=== PATIENT | female | born 1965 | race Asian ===

== ENCOUNTER 2019-04-21 12:23 | Inpatient (IN) | payer OTHER ==
[~2019-04-21] VITALS: Ht 165.1 cm; Wt 72.1 kg
[2019-04-21 12:39] VITALS: BP_SYST 142
[2019-04-21] MEDS ORDERED: DIPHENHYDRAMINE INJ 50 MG/ML VIAL IVP ONE (12:45)
[2019-04-21] MEDS ORDERED: MORPHINE 4 MG/ML INJ. SYRINGE IVP ONE (12:45)
[2019-04-21 13:08] LABS: BASOPHILS % (AUTO) 0.8 % (0.0-2.0); EOSINOPHILS # (AUTO) 0.1 K/uL (0.0-0.4); EOSINOPHILS % (AUTO) 1.2 % (0.0-4.0); HEMATOCRIT 41.1 % (36-48); LYMPHOCYTES % (AUTO) 39.2 % (20.5-51.5); MEAN CORPUSCULAR HEMOGLOBIN 19 pg (27-31); MEAN CORPUSCULAR HGB CONC 32 % (32-36); MEAN CORPUSCULAR VOLUME 61 fL (79.0-98.0); MONOCYTES # (AUTO) 0.3 K/uL (0.0-1.0); MONOCYTES % (AUTO) 5.4 % (1.7-9.3); NEUTROPHILS # (AUTO) 2.7 K/uL (1.8-7.7); NEUTROPHILS % (AUTO) 53.4 % (40.0-70.0); PLATELET COUNT (AUTO) 190 K/uL (130-430); RED BLOOD CELL COUNT(AUTO) 6.69 MIL/uL (4.2-6.2); WHITE BLOOD COUNT (AUTO) 5.1 K/uL (4.8-10.8)
[2019-04-21 13:18] LABS: ANION GAP 8 (5-15); CALCIUM 9.3 mg/dL (8.4-11.0); CHLORIDE 103 mmol/L (98-107); CREATININE 0.83 mg/dL (0.55-1.30); GLUCOSE 112 mg/dL (70-99); POTASSIUM 3.2 mmol/L (3.5-5.1); SODIUM SERUM 137 mmol/L (136-145); UREA NITROGEN, BLOOD 12 mg/dL (8-21)
[2019-04-21 13:19] LABS: GFR AFRICAN AMERICAN 92 mL/min (>90); INR 0.9 (0.8-1.2); PROTHROMBIN TIME 9.6 SECS (9.5-12.5)
[2019-04-21] MEDS ORDERED: ASPIRIN 81 MG TAB.CHEW PO ONE (13:30)
[2019-04-21] MEDS ORDERED: METOPROLOL TARTRATE 5 MG/5 ML VIAL IVP ONE (13:30)
[2019-04-21 13:35] LABS: ALANINE AMINOTRANSFERASE 26 U/L (12-78); ALBUMIN 3.9 g/dL (3.4-4.8); ALCOHOL, BLOOD < 3 mg/dL (<10); ASPARTATE AMINOTRANSFERASE 54 U/L (10-37); FREE T4 (FREE THYROXINE) 0.9 ng/dL (0.6-1.6); TOTAL BILIRUBIN 0.8 mg/dL (0.0-1.0)
[2019-04-21] MEDS ORDERED: VITA1CAP PO (14:14)
[2019-04-21] MEDS ORDERED: OMEP40CA33 PO (14:14)
[2019-04-21] MEDS ORDERED: VITD2000 PO (14:14)
[2019-04-21] MEDS ORDERED: GLUC-103 PO (14:14)
[2019-04-21] MEDS ORDERED: cloNIDine HCL 0.1 MG TABLET PO ONE (14:30)
[2019-04-21 15:22] LABS: BILIRUBIN,URINE NEGATIVE (NEGATIVE); CLARITY/URINE CLEAR (CLEAR); COLOR,URINE YELLOW (YELLOW); GLUCOSE,URINE NEGATIVE (NEGATIVE); KETONES,URINE NEGATIVE (NEGATIVE); NITRITE, URINE NEGATIVE (NEGATIVE); PROTEIN URINE TRACE (NEGATIVE); UROBILINOGEN,URINE 0.2 (0.2-1.0)
[2019-04-21 15:29] LABS: BLOOD, URINE TRACE (NEGATIVE); LEUKOCYTE ESTERASE ,URINE 1+ (NEGATIVE)
[2019-04-21 15:30] LABS: BACTERIA,URINE FEW /HPF (None Seen); MUCUS,URINE None Seen /LPF (None Seen); RBC,URINE 0-3 /HPF (0-3)
[2019-04-21 15:36] LABS: BARBITURATE, URINE NEGATIVE (NEG <=200)
[2019-04-21 15:37] LABS: BENZODIAZEPINE, URINE NEGATIVE (NEG <=150); CANNABINOID, URINE NEGATIVE (NEG <=50); COCAINE, URINE NEGATIVE (NEG <=150); METHAMPHETAMINES SCREEN,URINE NEGATIVE (NEG <=500); OPIATE, URINE POSITIVE (NEG <=100); PHENCYCLIDINE SCREEN,URINE NEGATIVE (NEG <=25); UR TRICYCLIC ANTIDEPRESSANTS NEGATIVE (NEG <=300); URINE AMPHETAMINE NEGATIVE (NEG <=500); URINE METHADONE NEGATIVE (NEG <=200); URINE OXYCODONE SCREEN NEGATIVE (NEG <=100); URINE PROPOXYPHENE SCREEN NEGATIVE (NEG <=300)
[2019-04-21 15:46] VITALS: BP_SYST 93
[2019-04-21 16:51] LABS: CKMB RELATIVE INDEX 0.4 (0.0-2.9); CREATINE KINASE MB 10.5 ng/mL (0-3.6)
[2019-04-21 19:50] VITALS: BP_SYST 83
[2019-04-21] MEDS ORDERED: NS 500 ML IV ONE (20:00)
[2019-04-21] MEDS: ASPIRIN 81 MG TAB.CHEW PO SCH (20:15)
[2019-04-21] MEDS ORDERED: NITROGLYCERIN 0.4 MG TAB.SUBL SL PRN (20:15)
[2019-04-21] MEDS ORDERED: ACETAMINOPHEN 325 MG TABLET PO PRN (20:15)
[2019-04-21 20:40] VITALS: BP_SYST 101
[2019-04-21] MEDS: PANTOPRAZOLE SODIUM 40 MG TAB PO SCH (20:46)
[2019-04-21] MEDS: ENOXAPARIN SODIUM 40 MG/0.4 ML SYRINGE SUBCUT SCH (20:47)
[2019-04-21] MEDS ORDERED: ASPIRIN 81 MG TAB.CHEW ONE (20:52)
[2019-04-21] MEDS ORDERED: PANTOPRAZOLE SODIUM 40 MG TAB ONE (20:53)
[2019-04-21] MEDS ORDERED: POTASSIUM CHLORIDE 20 MEQ TAB.PRT.SR PO ONE (21:00)
[2019-04-21] MEDS ORDERED: METOPROLOL TARTRATE 25 MG TABLET PO SCH (21:00)
[2019-04-22] VITALS (7 sets, daily range): BP systolic 81–106
[2019-04-22] MEDS ORDERED: NS 500 ML IV ONE (05:30)
[2019-04-22] MEDS: NACL 0.9% 1,000 ML IV SCH ×3 (06:35→22:19)
[2019-04-22 08:28] LABS: CKMB RELATIVE INDEX 0.3 (0.0-2.9); CREATINE KINASE MB 4.3 ng/mL (0-3.6)
[2019-04-22] MEDS: PANTOPRAZOLE SODIUM 40 MG TAB PO SCH (08:40)
[2019-04-22] MEDS: ASPIRIN 81 MG TAB.CHEW PO SCH (08:40)
[2019-04-22] MEDS ORDERED: POTASSIUM CHLORIDE 20 MEQ/PKT PACKET PO ONE (10:15)
[2019-04-22] MEDS ORDERED: ASPIRIN 81 MG TAB.CHEW PO ONE (15:15)
[2019-04-22] MEDS: ENOXAPARIN SODIUM 40 MG/0.4 ML SYRINGE SUBCUT SCH (20:46)
[2019-04-22] MEDS: KETOROLAC TROMETHAMINE 15 MG VIAL IM PRN (20:47)
[2019-04-23 00:34] VITALS: BP_SYST 128
[2019-04-23 00:52] LABS: CKMB RELATIVE INDEX 0.2 (0.0-2.9); CREATINE KINASE MB 2.5 ng/mL (0-3.6)
[2019-04-23] MEDS: NACL 0.9% 1,000 ML IV SCH (01:07)
[2019-04-23 07:02] LABS: ALBUMIN 3.1 g/dL (3.4-4.8); CALCIUM 8.3 mg/dL (8.4-11.0); CREATININE 0.8 mg/dL (0.55-1.30); POTASSIUM 3.9 mmol/L (3.5-5.1); THYROID STIMULATING HORMONE 2.56 uIu/mL (0.36-3.74); TOTAL BILIRUBIN 0.4 mg/dL (0.0-1.0)
[2019-04-23] MEDS: KETOROLAC TROMETHAMINE 15 MG VIAL IM PRN (07:35)
[2019-04-23 08:00] VITALS: BP_SYST 138
[2019-04-23] MEDS: PANTOPRAZOLE SODIUM 40 MG TAB PO SCH (08:28)
[2019-04-23] MEDS: ASPIRIN 81 MG TAB.CHEW PO SCH (08:28)
[2019-04-23] MEDS ORDERED: traMADol HCL HCL 50 MG TABLET (ULTRAM) PO PRN ×2 (09:15→18:30)
[2019-04-23] MEDS: LOSARTAN POTASSIUM 50 MG TABLET (COZAAR) PO SCH (09:26)
[2019-04-23] MEDS ORDERED: DOCUSATE SODIUM 100 MG CAPSULE PO ONE (09:30)
[2019-04-23 12:23] VITALS: BP_SYST 114
[2019-04-23 16:15] VITALS: BP_SYST 103
[2019-04-23] MEDS ORDERED: cloNIDine HCL 0.1 MG TABLET PO PRN (17:30)
[2019-04-23] MEDS ORDERED: HYDROcodone/ACETAMIN 5-325 MG TAB (NORCO/ VICODIN) PO PRN (18:30)
[2019-04-23] MEDS ORDERED: TEMAZEPAM 15 MG CAPSULE PO PRN (18:30)
[2019-04-23] MEDS ORDERED: BISACODYL 10 MG/SUPPOSITORY RC ONE (18:30)
[2019-04-23 20:00] VITALS: BP_SYST 125
[2019-04-23] MEDS: FAMOTIDINE 20 MG TABLET PO SCH (21:31)
[2019-04-23] MEDS: DICLOFENAC SODIUM 25 MG TABLET.DR PO SCH (21:31)
[2019-04-23] MEDS ORDERED: LACTULOSE 20 GM/30 ML UDC PO PRN (21:45)
[2019-04-24 00:42] VITALS: BP_SYST 116
[2019-04-24] MEDS: ONDANSETRON HCL 4 MG/2 ML VIAL IVP PRN ×2 (08:16→14:29)
[2019-04-24] MEDS: DICLOFENAC SODIUM 25 MG TABLET.DR PO SCH (08:19)
[2019-04-24 08:20] VITALS: BP_SYST 99
[2019-04-24] MEDS: PANTOPRAZOLE SODIUM 40 MG TAB PO SCH (08:20)
[2019-04-24] MEDS: FAMOTIDINE 20 MG TABLET PO SCH (08:20)
[2019-04-24] MEDS: ASPIRIN 81 MG TAB.CHEW PO SCH (08:20)
[2019-04-24] MEDS: LOSARTAN POTASSIUM 50 MG TABLET (COZAAR) PO SCH (09:00)
[2019-04-24] MEDS ORDERED: DOCUSATE SODIUM 100 MG CAPSULE PO SCH (09:00)
[2019-04-24 12:43] VITALS: BP_SYST 100; BP_SYST 127
[2019-04-24 15:16] VITALS: BP_SYST 110
[2019-04-24 16:25] VITALS: BP_SYST 110
== END 2019-04-24 16:37 | disposition home or self-care (01) | DRG 552 ==
LOC: SED 12:23 → STU 15:07
PROVIDERS: ADMIT Family Medicine; ATTEND Internal Medicine
DX: M47.892 Other spondylosis, cervical region (principal); I10 Essential (primary) hypertension; G43.009 Migraine without aura, not intractable, without status migrainosus; H81.10 Benign paroxysmal vertigo, unspecified ear; D56.0 Alpha thalassemia; E78.5 Hyperlipidemia, unspecified; K21.9 Gastro-esophageal reflux disease without esophagitis; Z82.49 Family history of ischemic heart disease and other diseases of the circulatory system; Z79.899 Other long term (current) drug therapy
CPT/HCPCS: 36415; 70450-TC; 70544; 70551; 71045; 72050-TC; 80053; 80061; 80307; 81000-TC; 82140-TC; 82550-TC; 82553-TC; 83605; 83735-TC; 83880; 84439; 84443-TC; 84484; 85025; 85610-TC; 85651-TC; 87040-TC; 87086; 93005; 93306; 96374; 96375; 99285; G0378; G0482; J1200; J1650; J1885; J2270; J2405; J3490; J7030; J7040